=== PATIENT | female | born 1955 | race Native Hawaiian/Other Pacific Islander ===

== ENCOUNTER 2017-05-24 14:31 | Emergency (ER) | payer BC ==
[~2017-05-24] VITALS: Ht 170.2 cm; Wt 72.6 kg
== END 2017-05-24 17:13 | disposition home or self-care (01) ==
LOC: ED 14:31
DX: M54.5 Low back pain (principal)
CPT/HCPCS: 81000; 96372; 99283; J1885

== ENCOUNTER 2019-02-22 09:49 | Outpatient (CLI) | payer OTHER | END 2019-02-22 21:07 | disposition home or self-care (01) | LOC: MAMMO 09:49 | DX: Z12.31 Encounter for screening mammogram for malignant neoplasm of breast (principal) ==

== ENCOUNTER 2020-10-18 10:50 | Outpatient (CLI) | payer OTHER | END 2020-10-18 21:31 | disposition home or self-care (01) | LOC: US 10:50 | PROVIDERS: ATTEND Internal Medicine | DX: M25.511 Pain in right shoulder (principal) ==

== ENCOUNTER 2020-11-10 10:19 | Outpatient (CLI) | payer OTHER | END 2020-11-10 19:58 | disposition home or self-care (01) | LOC: RAD 10:19 → MAMMO 10:19 | PROVIDERS: ATTEND Nurse Practitioner Family | DX: M54.2 Cervicalgia (principal); Z12.31 Encounter for screening mammogram for malignant neoplasm of breast ==

== ENCOUNTER 2022-01-29 13:54 | Outpatient (CLI) | payer OTHER | END 2022-01-29 18:59 | disposition home or self-care (01) | LOC: MAMMO 13:54 | PROVIDERS: ATTEND Internal Medicine | DX: Z12.31 Encounter for screening mammogram for malignant neoplasm of breast (principal) ==